=== PATIENT | male | born 2000 | race Caucasian/White ===

== ENCOUNTER 2023-09-27 15:56 | Emergency (ER) | payer OTHER ==
[~2023-09-27] VITALS: Ht 182.9 cm; Wt 86.4 kg
[~2023-09-27 15:56] MED LIST: ZITHROMAX Z PA250 MG PO
[2023-09-27 16:05] VITALS: TEMP 99.6
[2023-09-27] MEDS ORDERED: Ketorolac 30 MG/ML VIAL IV ONE (16:45)
[2023-09-27] MEDS ORDERED: NS 1,000 ML IV ONE (16:45)
[2023-09-27] MEDS ORDERED: dexAMETHasone 10 MG/ML VIAL IV ONE (16:45)
[2023-09-27 17:17] LABS: MONOSCREEN NEGATIVE
[2023-09-27] MEDS ORDERED: PEN-VEE K500 MG PO (17:47)
[2023-09-27] MEDS ORDERED: Penicillin V-K 250 MG TAB PO ONE (18:00)
[2023-09-27 18:13] VITALS: BP 143/75; PULSE 75
== END 2023-09-27 18:14 | disposition home or self-care (01) ==
LOC: COL.ER 15:56
PROVIDERS: Physician Assistant
DX: J02.0 Streptococcal pharyngitis (principal)
CPT/HCPCS: J1100; J1885; J7030